=== PATIENT | male | born 1980 | race Caucasian/White ===

== ENCOUNTER 2019-05-28 18:17 | Emergency (ER) | payer MEDICAID ==
[~2019-05-28] VITALS: Ht 180.3 cm; Wt 91.9 kg
[~2019-05-28 18:17] MED LIST: PERM60CR17 TP
[2019-05-28 18:26] VITALS: BP 107/71
--- NOTE | 2019-05-28 18:28 | NUR ---
EMPLOYEE BENEFITS COORDINATOR: BROOKS NOBLE: [phone]. PER PT REQUEST TO CALL REAL WHEN READY FOR DISCHARGE, WILL COME MANAGER GROUP PT.
[2019-05-28] MEDS ORDERED: LIDOCAINE-MPF 1%, 5ML INFIL ONE (19:00)
--- NOTE | 2019-05-28 19:10 | NUR ---
PT TO ROOM 9 PER WHEELCHAIR. PT HAS USED MULTIPLE DRUGS OVER THE LAST FEW DAYS, AND IS HERE DUE TO AN ABCESS ON HIS RIGHT UPPER ARM. PT IS UNABLE TO SIT STILL HE PACES THE ROOM. PT FINALLY GETS INTO A GOWN AND IS LYING ON BED.
[2019-05-28] MEDS ORDERED: LIDOCAINE-MPF 1%, 5ML ONE (19:14)
--- NOTE | 2019-05-28 19:19 | NUR ---
PA IN TO I&D THE ABCESS. PT IS UNABLE TO SIT STILL AND CONTINUES TO JERK HIS ARM AWAY. PA IS GOING TO CONFER WITH THE MD. REGISTRATION AT BEDSIDE.
--- NOTE | 2019-05-28 19:51 | NUR ---
DISCHARGE INSTRUCTIONS GIVEN TO PATIENT BY PA. PT REQUESTING FOR PA TO DRAIN HIS ABCESS, AND PA INFORMS HIM WHY SHE WILL NOT TRY AGAIN. PT IS UNABLE TO SIT STILL FOR PROCEDURE. PT REFUSES TO SIGN THE DISCHARGE INSTRUCTIONS. PT STATES "NOW I'M GONNA GO HOME AND SLICE THIS THING WITH A RAZOR AND PROBABLY GET AN INFECTION." RN AGAIN POINTS TO DISCHARGE INSTRUCTIONS THAT INCLUDE 2 ANTIBIOTIC PRESCRIPTIONS. RN SUGGESTS TO PATIENT THAT IF HE TRULY WANTS THIS DONE, HE NEEDS TO COME BACK WHEN THE METH AND HEROIN WEAR OFF. PT TAKES THE PAPERWORK AND AMBULATES OUT OF THE ED STILL WEARING THE PATIENT GOWN.
== END 2019-05-28 19:59 | disposition home or self-care (01) ==
LOC: ED 19:26
DX: L02.413 Cutaneous abscess of right upper limb (principal); F15.129 Other stimulant abuse with intoxication, unspecified; F19.10 Other psychoactive substance abuse, uncomplicated
CPT/HCPCS: 10060; 99283